=== PATIENT | female | born 1995 | race Caucasian/White ===

== ENCOUNTER 2016-12-17 15:43 | Emergency (ER) | payer OTHER ==
[2016-12-17 15:48] VITALS: BP 127/59
== END 2016-12-17 19:13 | disposition home or self-care (01) ==
LOC: ED 15:43
DX: S91.119A Laceration without foreign body of unspecified toe without damage to nail, initial encounter (principal); X58.XXXA Exposure to other specified factors, initial encounter; Y93.89 Activity, other specified; Y99.8 Other external cause status; Y92.89 Other specified places as the place of occurrence of the external cause
CPT/HCPCS: 90715; J2001

== ENCOUNTER 2018-03-07 18:24 | Emergency (ER) | payer OTHER ==
[~2018-03-07] VITALS: Ht 165.1 cm; Wt 59.9 kg
[2018-03-07 18:30] VITALS: Ht 165.1 cm; Wt 59.9 kg
[2018-03-07 20:25] VITALS: BP 121/76
== END 2018-03-07 20:25 | disposition home or self-care (01) ==
LOC: ED 18:24
DX: S01.01XA Laceration without foreign body of scalp, initial encounter (principal); Z86.718 Personal history of other venous thrombosis and embolism; Z89.202 Acquired absence of left upper limb, unspecified level; V49.40XA Driver injured in collision with unspecified motor vehicles in traffic accident, initial encounter; Y93.I9 Activity, other involving external motion; Y92.413 State road as the place of occurrence of the external cause; Y99.8 Other external cause status
CPT/HCPCS: J2001

== ENCOUNTER 2018-03-15 11:52 | Emergency (ER) | payer OTHER ==
[2018-03-15 12:03] VITALS: Ht 165.1 cm
[2018-03-15 14:10] VITALS: BP 126/71
== END 2018-03-15 14:10 | disposition home or self-care (01) ==
LOC: ED 11:52
DX: S01.01XD Laceration without foreign body of scalp, subsequent encounter (principal); X58.XXXD Exposure to other specified factors, subsequent encounter; Z89.202 Acquired absence of left upper limb, unspecified level

== ENCOUNTER 2019-01-08 10:04 | Emergency (ER) | payer OTHER ==
[~2019-01-08] VITALS: Ht 165.1 cm; Wt 71.2 kg
[2019-01-08 10:09] VITALS: Ht 165.1 cm; Wt 71.2 kg
[2019-01-08 11:08] VITALS: BP 130/67
== END 2019-01-08 11:09 | disposition home or self-care (01) ==
LOC: ED 10:04
DX: H04.321 Acute dacryocystitis of right lacrimal passage (principal); Z89.202 Acquired absence of left upper limb, unspecified level; Z98.890 Other specified postprocedural states